=== PATIENT | female | born 1985 | race Caucasian/White ===

== ENCOUNTER 2021-04-08 18:05 | Emergency (ER) | payer BC, OTHER ==
[2021-04-08] MEDS ORDERED: Sodium Chloride 0.9% 10 ML Syringe FLUSH PRN (19:14)
[2021-04-08] MEDS ORDERED: Hyoscyamine 0.125 MG Tab.SL SL ONE ×2 (19:14→20:30)
--- NOTE | 2021-04-08 19:39 | EDM.PDOC ---
ED HPI GENERAL MEDICAL PROBLEM - General Chief Complaint: Chest Pain Stated Complaint: CHEST PAIN Time Seen by Provider: 04/08/21 18:51 Source of Information: Reports: Patient History Limitations: Reports: No Limitations - History of Present Illness INITIAL COMMENTS - FREE TEXT/NARRATIVE: 36-year-old female presents the emergency department with complaints of midsternal chest discomfort with radiation into her throat and right shoulder blade. Patient states she developed midsternal chest discomfort yesterday afternoon at approximately 1 PM when she was at the movie theater watching a movie. She states that prior to the movie she did have spicy boneless wings with a dry spicy rub. For breakfast yesterday morning she had egg whites with jalapenos. States that the pain progressively worsened and last evening recommended she try taking a couple of Tums. She states this did not resolve the discomfort. She states she then attempted to sit in the hot tub and had her massage her right shoulder discomfort. She states this is done to help and she left to go to bed. States that woke this morning and still had the discomfort. Her father recommended she take some aspirin so she elected to do so. She states that initially after taking the aspirin she felt slightly nauseated however this has resolved. She states that chest discomfort is a pressure which feels like she has a lump in her throat. She denies any significant past history. She does not take any prescription medications. She has no history of smoking cigarettes. Chest Pain Score (Numeric/FACES): 3 - Related Data Allergies Allergy/AdvReac Type Severity Reaction Status Date / Time No Known Allergies Allergy Verified 04/08/21 18:35 Home Meds: Home Meds . [No Known Home Meds] 04/08/21 [History] Past Medical History HEENT History: Reports: Other (See Below) Other HEENT History: strep throat. Respiratory History: Reports: Bronchitis, Recurrent Gastrointestinal History: Reports: Chronic Constipation Genitourinary History: Reports: Pyelonephritis, UTI, Recurrent [employer] History: Reports: Psychiatric History: Reports: Anxiety, Depression Hematologic History: Reports: Iron Deficiency - Infectious Disease History Infectious Disease History: Reports: Chicken Pox - Past Surgical History HEENT Surgical History: Reports: Tonsillectomy Female Surgical History: Reports: Section Social & Family History - Tobacco Use Tobacco Use Status *Q: Never Tobacco User Second Hand Smoke Exposure: No - Caffeine Use Caffeine Use: Reports: Coffee, Energy Drinks, Soda - Recreational Drug Use Recreational Drug Use: No ED ROS GENERAL - Review of Systems Review Of Systems: Comprehensive ROS is negative, except as noted in HPI. ED EXAM, GENERAL - Physical Exam Exam: See Below Exam Limited By: No Limitations General Appearance: Alert, WD/WN, Mild Distress Ears: Normal External Exam, Hearing Grossly Normal Nose: Normal Inspection Throat/Mouth: Normal Inspection, Normal Lips, Normal Voice, No Airway Compromise Head: Atraumatic, Normocephalic Neck: Normal Inspection, Supple Respiratory/Chest: No Respiratory Distress, Lungs Clear, Normal Breath Sounds, No Accessory Muscle Use, Chest Non-Tender Cardiovascular: Normal Peripheral Pulses, Regular Rate, Rhythm, No Edema, No Murmur Peripheral Pulses: 2+: Radial (L), Radial (R) GI/Abdominal: Normal Bowel Sounds, Soft, No Distention, Tender (Right upper quadrant) (Female) Exam: Deferred Rectal (Female) Exam: Deferred Back Exam: Normal Inspection, Full Range of Motion Extremities: Normal Inspection, Normal Range of Motion, Non-Tender, No Pedal Edema, Normal Capillary Refill Neurological: Alert, Oriented, Normal Cognition Psychiatric: Normal Affect, Normal Mood Skin Exam: Warm, Dry, Intact, Normal Color, No Rash Lymphatic: No Adenopathy Course - Vital Signs Text/Narrative:: As stated above patient presents with midsternal chest discomfort radiating to her right shoulder blade. The time of my exam patient does seem to be having some discomfort. States pain is worse when taking a deep breath. Lungs are clear to auscultation and heart rate is regular S1-S2. Bowel sounds are positive in all 4 quadrants. Patient does have significant tenderness noted to right upper quadrant with palpation. She states that with palpation it exacerb ates the right scapular discomfort. Will obtain lab studies to include a CBC, CMP, magnesium level, troponin, lipase and a GGT. Also obtain an EKG and a portable chest x-ray. We will give the patient 1 tab of Levsin sublingual to see if we can resolve the discomfort. Question if the discomfort is not related to gallbladder issues. Last Recorded V/S: Last Vital Signs Temp 96.9 F 04/08/21 18:30 Pulse 60 04/08/21 18:30 Resp 18 04/08/21 18:30 BP 118/89 04/08/21 18:30 Pulse Ox 100 04/08/21 18:30 - Orders/Labs/Meds Orders: Active Orders 24 hr Category Date Time Status Sodium Chloride 0.9% [Saline Flush] Med 04/08/21 19:14 Active 10 ml FLUSH ASDIRECTED PRN Saline Lock Insert [OM.PC] Stat Oth 04/08/21 19:14 Ordered Medication Orders Sodium Chloride (Sodium Chloride 0.9% 10 Ml Syringe) 10 ml FLUSH ASDIRECTED PRN PRN Reason: Keep Vein Open Last Admin: 04/08/21 19:33 Dose: 10 ml Documented by: GLEN Labs: Laboratory Tests 04/08/21 04/08/21 04/08/21 Range/Units 18:40 18:40 18:40 WBC 5.30 (3.98-10.04) K/mm3 RBC 4.10 (3.98-5.22) M/mm3 Hgb 11.2 (11.2-15.7) gm/dl Hct 35.3 (34.1-44.9) % MCV 86.1 (79.4-94.8) fl MCH 27.3 (25.6-32.2) pg MCHC 31.7 L (32.2-35.5) g/dl RDW Std Deviation 44.7 (36.4-46.3) fL Plt Count 181 L (182-369) K/mm3 MPV 11.3 (9.4-12.3) fl Neut % (Auto) 43.5 (34.0-71.1) % Lymph % (Auto) 47.0 (19.3-51.7) % [place] % (Auto) 7.4 (4.7-12.5) % Eos % (Auto) 1.5 (0.7-5.8) Baso % (Auto) 0.6 (0.1-1.2) % Neut # (Auto) 2.31 (1.56-6.13) K/mm3 Lymph # (Auto) 2.49 (1.18-3.74) K/mm3 [place] # (Auto) 0.39 H (0.24-0.36) K/mm3 Eos # (Auto) 0.08 (0.04-0.36) K/mm3 Baso # (Auto) 0.03 (0.01-0.08) K/mm3 Sodium 139 (136-145) mEq/L Potassium 3.6 (3.5-5.1) mEq/L Chloride 104 (98-107) mEq/L Carbon Dioxide 27 (21-32) mEq/L Anion Gap 11.6 (5-15) BUN 11 (7-18) mg/dL Creatinine 0.7 (0.55-1.02) mg/dL Est Cr Clr Drug Dosing 87.87 mL/min Estimated GFR (MDRD) > 60 (>60) mL/min BUN/Creatinine Ratio 15.7 (14-18) Glucose 94 (70-99) mg/dL Calcium 8.6 (8.5-10.1) mg/dL Magnesium 1.7 L (1.8-2.4) mg/dL Total Bilirubin 1.5 H (0.2-1.0) mg/dL GGT 14 (5-55) U/L AST 7 L (15-37) U/L ALT 16 (14-59) U/L Alkaline Phosphatase 45 L (46-116) U/L Troponin I < 0.017 (0.00-0.056) ng/mL Total Protein 6.5 (6.4-8.2) g/dl Albumin 3.7 (3.4-5.0) g/dl Globulin 2.8 gm/dL Albumin/Globulin Ratio 1.3 (1-2) Lipase 98 (73-393) U/L Meds: Medications Generic Name Dose Route Start Last Admin Trade Name Freq PRN Reason Stop Dose Admin Sodium Chloride 10 ml 04/08/21 19:14 04/08/21 19:33 Sodium Chloride 0.9% 10 Ml Syringe FLUSH 10 ml ASDIRECTED PRN Administration Keep Vein Open Discontinued Medications Generic Name Dose Route Start Last Admin Trade Name Freq PRN Reason Stop Dose Admin Hyoscyamine 0.125 mg 04/08/21 19:14 04/08/21 19:43 Hyoscyamine 0.125 Mg Tab.[facility] 04/08/21 19:15 0.125 mg ONETIME ONE Administration Hyoscyamine 0.125 mg 04/08/21 20:30 Hyoscyamine 0.125 Mg Tab.[facility] 04/08/21 20:31 ONETIME ONE Ondansetron HCl 4 mg 04/08/21 20:30 Ondansetron 4 Mg/2 Ml Sdv IVPUSH 04/08/21 20:31 ONETIME ONE - Re-Assessments/Exams Free Text/Narrative Re-Assessment/Exam: 04/08/21 20:41 Hematology is essentially unremarkable. Chemistry reveals a magnesium of 1.7, total bilirubin 1.5, GGT 14, AST 7, ALT 16, alk phos 45, troponin less than 0.017 lipase 98 Radiologist impression frontal view of the chest: Nothing acute is seen on frontal chest x-ray Patient states she has had relief of the discomfort after receiving Levsin. She states she does feel slightly nauseated however now. Will repeat the Levsin dose x1 as well as medicate her with 4 mg of Zofran IV. Suspect discomfort is due to gallbladder issues. Patient is not wanting to wait till 11:00 this evening to have an ultrasound completed as she last ate at 5 PM this evening. Outpatient ultrasound has been scheduled for 8 AM tomorrow morning. Patient will follow up with Susan Rodgers at [facility] to get the results. Departure - Departure Time of Disposition: 20:42 Disposition: Home, Self-Care 01 Condition: Good Clinical Impression: Right upper quadrant abdominal pain Referrals: PCP,None [Primary Care Provider] - Susan Rodgers PA-C [Ordering Only Provider] - Forms: ED Department Discharge Additional Instructions: You were seen in the emergency department this evening with chest discomfort and right shoulder discomfort that started yesterday. Full cardiac work-up was completed and this was unremarkable. Upon exam he did have significant amount of tenderness noted to the right upper abdomen. Recommend ultrasound of the abdomen however this test requires you to not having anything to eat or drink 6 hours prior to the test. You were given medication to help the discomfort and it did seem to somewhat resolve. Outpatient ultrasound has been scheduled for t omorrow morning at 8 AM. You will need to check and by 730. You will then need to follow-up with Susan Rodgers within the next week for results of the ultrasound. Until that time recommend eating a very bland diet. No spicy foods, no fatty foods, no dairy, no caffeine and no alcohol. Should your condition worsen or change, do not hesitate returning to the emergency department. Sepsis Event Note (ED) - Evaluation Sepsis Screening Result: No Definite Risk - Focused Exam Vital Signs: Vital Signs Temp Pulse Resp BP Pulse Ox 04/08/21 18:30 96.9 F 60 18 118/89 100 - My Orders Last 24 Hours: My Active Orders 04/08/21 19:14 Sodium Chloride 0.9% [Saline Flush] 10 ml FLUSH ASDIRECTED PRN Saline Lock Insert [OM.PC] Stat - Assessment/Plan Last 24 Hours: My Active Orders 04/08/21 19:14 Sodium Chloride 0.9% [Saline Flush] 10 ml FLUSH ASDIRECTED PRN Saline Lock Insert [OM.PC] Stat
--- NOTE | 2021-04-08 20:18 | CR ---
Chest: Frontal view of the chest was obtained. Comparison: No prior chest imaging is available. Heart size and mediastinum are within normal limits. Lungs are clear with no acute parenchymal change. Bony structures show nothing acute. Impression: 1. Nothing acute is seen on frontal chest x-ray. Diagnostic code #1
[2021-04-08] MEDS ORDERED: Ondansetron 4 MG/2 ML SDV IVPUSH ONE (20:30)
--- NOTE | 2021-04-08 22:56 | PCM.EKG ---
#1 Interpretation EKG Date: 04/08/21 Time: 18:39 Rhythm: NSR Rate (Beats/Min): 59 [place]: Normal P-Wave: Present QRS: Normal ST-T: Normal QT: Normal Comparison: NA - No Prior EKG EKG Interpretation Comments: Per Dr. Overton interpretation: Sinus rhythm at 59 bpm; borderline short [place] interval; borderline T wave abnormalities.
== END 2021-04-08 21:02 | disposition home or self-care (01) ==
LOC: JD.ED 18:05
DX: R10.11 Right upper quadrant pain (principal); R07.2 Precordial pain
CPT/HCPCS: 36415; 71045; 80053; 82977; 83690; 83735; 84484; 85025; 93005; 96374; 99285; A9270; J2405